=== PATIENT | male | born 1995 | race Caucasian/White ===

== ENCOUNTER 2017-03-07 03:10 | Emergency (ER) | payer BC ==
[~2017-03-07] VITALS: Ht 180.3 cm; Wt 84.1 kg
[~2017-03-07 03:10] MED LIST: CEPHALEXIN500 M1 PO; NORCO 325 MG-7.1 TAB PO
[2017-03-07 03:13] VITALS: BP 133/71; TEMP 98.1
[2017-03-07 05:00] VITALS: PULSE 70
== END 2017-03-07 05:09 | disposition home or self-care (01) ==
LOC: COL.ER 03:10
DX: S01.111A Laceration without foreign body of right eyelid and periocular area, initial encounter (principal); S09.90XA Unspecified injury of head, initial encounter; F10.129 Alcohol abuse with intoxication, unspecified; W53.11XA Bitten by rat, initial encounter; Y92.481 Parking lot as the place of occurrence of the external cause